=== PATIENT | male | born 1960 | race Caucasian/White ===

== ENCOUNTER 2017-06-02 10:11 | Emergency (ER) | payer SELFPAY ==
[~2017-06-02] VITALS: Ht 188 cm; Wt 73.2 kg
[2017-06-02] MEDS ORDERED: TORADOL PO (10:34)
[2017-06-02 10:45] VITALS: BP 148/89
[2017-06-02] MEDS ORDERED: TRAZODONE HCL100 MG PO (15:08)
[2017-06-02] MEDS ORDERED: HYDROXYZ HCL25 MG PO (15:09)
[2017-06-02] MEDS ORDERED: CITALOPRAM40 MG PO (15:09)
[2017-06-02] MEDS ORDERED: FAMOTIDINE20 M1 PO (15:10)
[2017-06-02] MEDS ORDERED: DESYREL50 MG PO (15:10)
== END 2017-06-02 10:45 | disposition home or self-care (01) | DRG 556 ==
LOC: ED 10:11
DX: M79.1 Myalgia (principal); R50.83 Postvaccination fever; T50.B95A Adverse effect of other viral vaccines, initial encounter; F41.9 Anxiety disorder, unspecified

== ENCOUNTER 2017-06-02 13:20 | Emergency (ER) | payer SELFPAY ==
[~2017-06-02] VITALS: Ht 188 cm; Wt 77.6 kg
[~2017-06-02 13:20] MED LIST: TORADOL PO
[2017-06-02] MEDS ORDERED: TRAZODONE HCL100 MG PO (15:08)
[2017-06-02] MEDS ORDERED: HYDROXYZ HCL25 MG PO (15:09)
[2017-06-02] MEDS ORDERED: CITALOPRAM40 MG PO (15:09)
[2017-06-02 15:10] VITALS: BP 134/71
[2017-06-02] MEDS ORDERED: FAMOTIDINE20 M1 PO (15:10)
[2017-06-02] MEDS ORDERED: DESYREL50 MG PO (15:10)
== END 2017-06-02 15:10 | disposition home or self-care (01) | DRG 93 ==
LOC: ED 13:20
DX: R20.2 Paresthesia of skin (principal); T39.8X5A Adverse effect of other nonopioid analgesics and antipyretics, not elsewhere classified, initial encounter; F41.9 Anxiety disorder, unspecified

== ENCOUNTER 2018-06-16 17:19 | Emergency (ER) | payer SELFPAY ==
[~2018-06-16] VITALS: Ht 188 cm; Wt 70.0 kg
[~2018-06-16 17:19] MED LIST changes: +CITALOPRAM40 MG PO; +DESYREL50 MG PO; +FAMOTIDINE20 M1 PO; +HYDROXYZ HCL25 MG PO; +TRAZODONE HCL100 MG PO
[2018-06-16 18:56] LABS: URINE BILIRUBIN - DIPSTICK NEGATIVE (NEGATIVE); URINE BLOOD DIPSTICK NEGATIVE (NEGATIVE); URINE COLOR YELLOW; URINE GLUCOSE - DIPSTICK NEGATIVE (NEGATIVE); URINE KETONE NEGATIVE (NEGATIVE); URINE LEUK ESTERASE NEGATIVE (NEGATIVE); URINE NITRITE - DIPSTICK NEGATIVE (Negative); URINE PROTEIN - DIPSTICK NEGATIVE (NEG-TRACE); URINE SPECIFIC GRAVITY 1.025; URINE UROBILINOGEN - DIPSTICK 0.2 E.U./dL (0.2)
[2018-06-16 19:00] LABS: BARBITURATES NEGATIVE (NEGATIVE); COCAINE NEGATIVE (NEGATIVE); METHADONE NEGATIVE (NEGATIVE); OXCYCODONE POSITIVE (NEGATIVE); TETRAHYDROCANNABIONOL NEGATIVE (NEGATIVE); TRICYLIC ANTIDEPRESSANTS NEGATIVE (NEGATIVE)
[2018-06-16 19:34] VITALS: BP 175/88
== END 2018-06-16 19:34 | disposition home or self-care (01) | DRG 93 ==
LOC: ED 17:19
DX: G89.29 Other chronic pain (principal); M54.9 Dorsalgia, unspecified; X50.1XXA Overexertion from prolonged static or awkward postures, initial encounter